=== PATIENT | male | born 1960 | race Caucasian/White ===

== ENCOUNTER 2016-10-03 19:53 | Inpatient (IN) | payer BC ==
[~2016-10-03] VITALS: Ht 177.8 cm; Wt 104.3 kg
[2016-10-03] MEDS ORDERED: FENTANYL PF 100 MCG/2 ML VIAL. IV ONE ×2 (20:30)
[2016-10-03] MEDS ORDERED: IV NORMAL SALINE 1000ML BAG 1,000 ML IV ONE (20:30)
[2016-10-03] MEDS ORDERED: ONDANSETRON PF 4 MG/2 ML VIAL. IV ONE (20:30)
[2016-10-03 20:37] LABS: BASO # 0.1 x10^3/uL (0.0-0.2); BASO % 1 % (0-3); EOS % 2 % (0-3); HEMATOCRIT 47.3 % (39.0-53.0); LYMPH # 3.3 x10^3/uL (1.0-4.8); LYMPH % 37 % (24-48); MEAN CORPUSCULAR HEMOGLOBIN 33 pg (25-35); MEAN CORPUSCULAR HGB CONC 34 g/dL (31-37); MEAN CORPUSCULAR VOLUME 98 fL (79-100); MONO % 7 % (0-9); NEUT % 53 % (31-73); PLATELET COUNT 227 x10^3/uL (140-400); RED BLOOD COUNT 4.81 x10^6/uL (4.30-5.70); RED CELL DISTRIBUTION WIDTH 12.7 % (11.5-14.5); WHITE BLOOD COUNT 8.7 x10^3/uL (4.0-11.0)
[2016-10-03 20:44] LABS: CALCIUM 8.7 mg/dL (8.5-10.1); POTASSIUM 3.6 mmol/L (3.5-5.1)
[2016-10-03 20:51] LABS: ALBUMIN 3.7 g/dL (3.4-5.0); ALBUMIN/GLOBULIN RATIO 0.8 (1.0-1.7); TOTAL BILIRUBIN 0.7 mg/dL (0.2-1.0); TOTAL PROTEIN 8.4 g/dL (6.4-8.2)
[2016-10-03] MEDS ORDERED: HYDROMORPHONE 2 MG/ML VIAL. ONE (21:30)
[2016-10-03] MEDS ORDERED: HYDROMORPHONE 2 MG/ML VIAL. IV/SQ PRN (21:30)
--- NOTE | 2016-10-03 21:39 | RAD ---
PROCEDURE CT abdomen pelvis without contrast. HISTORY Severe abdominal pain and vomiting. TECHNIQUE Helical CT imaging of the abdomen and pelvis is performed without IV or oral contrast. PQRS: One or more the following individualized dose reduction techniques were utilized for the study: 1. Automated exposure control. 2. Adjustment of the mA and/or kV according to patient size. 3. Use of iterative reconstruction technique. COMPARISON None. FINDINGS Evaluation of solid organs and bowel is limited without oral and IV contrast, decreasing sensitivity for detection of pathology. There is a 6 x 9 millimeter noncalcified nodule in the left lower lobe, image 15. Mild bilateral dependent atelectasis or scarring. Cardiac size normal. Cholelithiasis. The liver, spleen, pancreas, adrenal glands, abdominal aorta, and kidneys are normal. Stomach unremarkable. No dilated small bowel is seen. There are a couple of diverticula of the descending colon without inflammation. No colon wall thickening is identified. The appendix is normal. No abdominal adenopathy or free fluid. Urinary bladder is normal prostate size normal. No pelvic free fluid. There is disc space narrowing and vacuum disc phenomenon and probably reactive endplate sclerosis of L5/S1. IMPRESSION 1. No acute abdominal or pelvic abnormality. 2. There is a 6 x 9 millimeter indeterminate pulmonary nodule in the left lower lobe. Recommend outpatient noncontrast CT chest. Electronically signed by: Marcellus Kenney MD (Oct 03, 2016 21:38:37)
--- NOTE | 2016-10-03 22:36 | PHYS DOC ---
Past Medical History Past Medical History: Anxiety, GERD Past Surgical History: Other Additional Past Surgical Histo: knee, cervical, lumbar Alcohol Use: None Drug Use: None Adult General Chief Complaint Chief Complaint: ABDOMINAL PAIN HPI HPI 55-year-old otherwise healthy male presents with severe right upper quadrant/ epigastric pain stemming gone on now for several hours. He states the onset was after eating. He denies any similar symptoms. His makes a point to state that he never goes to the doctor. Eyes fever chills or sweats. He's not had any melena or hematemesis. [] Review of Systems Review of Systems Constitutional: Denies fever or chills [] Eyes: Denies change in visual acuity, redness, or eye pain [] HENT: Denies nasal congestion or sore throat [] Respiratory: Denies cough or shortness of breath [] Cardiovascular: No additional information not addressed in HPI [] GI: Per history of present illness [] : Denies dysuria or hematuria [] Musculoskeletal: Denies back pain or joint pain [] Integument: Denies rash or skin lesions [] Neurologic: Denies headache, focal weakness or sensory changes [] Endocrine: Denies polyuria or polydipsia [] Current Medications Current Medications Current Medications Medications (Trade) Dose Ordered Sig/Dominick Start Time Stop Time Status Last Admin Dose Admin Fentanyl Citrate (Fentanyl 2ml Vial) 50 mcg 1X ONCE 10/03/16 20:30 10/03/16 20:31 DC 10/03/16 20:34 50 MCG Fentanyl Citrate 50 mcg 50 mcg 1X ONCE 10/03/16 20:30 10/03/16 20:31 Cancel Hydromorphone HCl (Dilaudid) 2 mg STK-MED ONCE 10/03/16 21:30 10/03/16 21:31 DC Ondansetron HCl (Zofran) 4 mg 1X ONCE 10/03/16 20:30 10/03/16 20:31 DC 10/03/16 20:34 4 MG Sodium Chloride (Iv Sodium Chloride 0.9% 1000ml Bag) 1,000 ml @ 1,000 mls/hr 1X ONCE 10/03/16 20:30 10/03/16 21:29 DC 10/03/16 20:33 1,000 MLS/HR Allergies Allergies Allergies Coded Allergies Type Severity Reaction Last Updated Verified No Known Drug Allergies 10/03/16 No Physical Exam Physical Exam Constitutional: Well developed, well nourished, moderate to severe distress, non -toxic appearance. [] HENT: Normocephalic, atraumatic, bilateral external ears normal, oropharynx moist, no oral exudates, nose normal. [] Eyes: PERRLA, EOMI, conjunctiva normal, no discharge. [] Neck: Normal range of motion, no tenderness, supple, no stridor. [] Cardiovascular:Heart rate regular rhythm, no murmur [] Lungs & Thorax: Bilateral breath sounds clear to auscultation [] Abdomen: Epigastric tenderness to palp positive Segura's. [] Skin: Warm, dry, no erythema, no rash. [] Back: No tenderness, no CVA tenderness. [] Extremities: No tenderness, no cyanosis, no clubbing, ROM intact, no edema. [] Neurologic: Alert and oriented X 3, normal motor function, normal sensory function, no focal deficits noted. [] Psychologic: Anxious [] Current Patient Data Vital Signs Vital Signs Date Time Temp Pulse Resp B/P Pulse Ox O2 Delivery O2 Flow Rate FiO2 10/03/16 21:45 65 20 165/103 98 Room Air 10/03/16 20:03 97.9 97.9 Lab Values Laboratory Tests Test 10/03/16 20:25 White Blood Count 8.7x10^3/uL (4.0-11.0) Red Blood Count 4.81x10^6/uL (4.30-5.70) Hemoglobin 16.0g/dL (13.0-17.5) Hematocrit 47.3% (39.0-53.0) Mean Corpuscular Volume 98fL (79-100) Mean Corpuscular Hemoglobin 33pg (25-35) Mean Corpuscular Hemoglobin Concent 34g/dL (31-37) Red Cell Distribution Width 12.7% (11.5-14.5) Platelet Count 227x10^3/uL (140-400) Neutrophils (%) (Auto) 53% (31-73) Lymphocytes (%) (Auto) 37% (24-48) Monocytes (%) (Auto) 7% (0-9) Eosinophils (%) (Auto) 2% (0-3) Basophils (%) (Auto) 1% (0-3) Neutrophils # (Auto) 4.6x10^3uL (1.8-7.7) Lymphocytes # (Auto) 3.3x10^3/uL (1.0-4.8) Monocytes # (Auto) 0.6x10^3/uL (0.0-1.1) Eosinophils # (Auto) 0.2x10^3/uL (0.0-0.7) Basophils # (Auto) 0.1x10^3/uL (0.0-0.2) Sodium Level 137mmol/L (136-145) Potassium Level 3.6mmol/L (3.5-5.1) Chloride Level 99mmol/L (98-107) Carbon Dioxide Level 26mmol/L (21-32) Anion Gap 12 (6-14) Blood Urea Nitrogen 11mg/dL (8-26) Creatinine 1.0mg/dL (0.7-1.3) Estimated GFR (Cockcroft-Gault) 77.0 BUN/Creatinine Ratio 11 (6-20) Glucose Level 194mg/dL (70-99) H Calcium Level 8.7mg/dL (8.5-10.1) Total Bilirubin 0.7mg/dL (0.2-1.0) Aspartate Amino Transferase (AST) 133U/L (15-37) H Alanine Aminotransferase (ALT) 197U/L (16-63) H Alkaline Phosphatase 112U/L (46-116) Troponin I Quantitative < 0.017ng/mL (0.000-0.055) Total Protein 8.4g/dL (6.4-8.2) H Albumin 3.7g/dL (3.4-5.0) Albumin/Globulin Ratio 0.8 (1.0-1.7) L Lipase 240U/L (73-393) Laboratory Tests 10/03/16 20:25 Laboratory Tests 10/03/16 20:25 EKG EKG [EKG: Normal sinus rhythm rate of [address]-T change] Radiology/Procedures Radiology/Procedures [] Impressions: CT abdomen pelvis without contrast. HISTORY Severe abdominal pain and vomiting. TECHNIQUE Helical CT imaging of the abdomen and pelvis is performed without IV or oral contrast. PQRS: One or more the following individualized dose reduction techniques were utilized for the study: 1. Automated exposure control. 2. Adjustment of the mA and/or kV according to patient size. 3. Use of iterative reconstruction technique. COMPARISON None. FINDINGS Evaluation of solid organs and bowel is limited without oral and IV contrast, decreasing sensitivity for detection of pathology. There is a 6 x 9 millimeter noncalcified nodule in the left lower lobe, image 15. Mild bilateral dependent atelectasis or scarring. Cardiac size normal. Cholelithiasis. The liver, spleen, pancreas, adrenal glands, abdominal aorta, and kidneys are normal. Stomach unremarkable. No dilated small bowel is seen. There are a couple of diverticula of the descending colon without inflammation. No colon wall thickening is identified. The appendix is normal. No abdominal adenopathy or free fluid. Urinary bladder is normal prostate size normal. No pelvic free fluid. There is disc space narrowing and vacuum disc phenomenon and probably reactive endplate sclerosis of L5/S1. IMPRESSION 1. No acute abdominal or pelvic abnormality. 2. There is a 6 x 9 millimeter indeterminate pulmonary nodule in the left lower lobe. Recommend outpatient noncontrast CT chest. Course & Med Decision Making Course & Med Decision Making Pertinent Labs and Imaging studies reviewed. (See chart for details) [ED course: Evaluation reveals a 55-year-old man in moderate to severe distress secondary to abdominal pain. Patient was given multiple doses of pain medicine and IV fluids which did help diminish his pain. He was also given anti-medics for his vomiting which did seem to work. After multiple doses of pain medication he states the pain is starting to come back and at this point I think the patient is best treated with continued IV hydration and pain medicine as an inpatient. He will also need surgical evaluation for his gallbladder.] Dragon Disclaimer Dragon Disclaimer This electronic medical record was generated, in whole or in part, using a voice recognition dictation system. Departure Departure Impression: Primary Impression: Abdominal pain Additional Impression: Biliary colic Disposition: ADMITTED INPATIENT Admitting Physician: Shell Perdue Condition: IMPROVED Referrals: DMITRIY BRANDT (PCP) Problem Qualifiers Primary Impression: Abdominal pain Abdominal location: right lower quadrant Qualified Code: R10.31 - Right lower quadrant pain MODESTO DENNY DO Oct 03, 2016 22:36
[2016-10-03] MEDS ORDERED: FENTANYL PF 100 MCG/2 ML VIAL. IV PRN (22:45)
[2016-10-03] MEDS ORDERED: ONDANSETRON PF 4 MG/2 ML VIAL. IV PRN (22:45)
[2016-10-03 23:00] VITALS: BP 170/111
--- NOTE | 2016-10-03 23:03 | EKG ---
[facility] [address] [place] [address] Test Date: 2016-10-03 Test Time: 20:42:51 Pat Name: LETHA PARK Department: Room: Gender: M Supervisor Prepress: : [id number] Requested By: MODESTO DENNY Order Number: [id number] Reading MD: Measurements Intervals Shannon Rate: 70 P: 49 SC: 212 QRS: -5 QRSD: 88 T: 39 QT: 394 QTc: 428 Interpretive Statements SINUS RHYTHM LEFTWARD AXIS OTHERWISE NORMAL ECG RI6.01 No previous ECG available for comparison
--- NOTE | 2016-10-03 23:12 | ACF ---
Admission Forms Criteria ABDOMINAL PAIN Clinical Indications for Admission to Inpatient Care (Place 'X' for any and all applicable criteria): Admission is indicated for ANY ONE of the following(1)(2)(3)(4)(5): [X]I. Inpatient admission required rather than observation care (Also use Abdominal Pain: Observation Care, as appropriate) because of ANY ONE of the following: [X]a) Severe pain requiring acute inpatient management [ ]b) Identification of etiology/finding that requires inpatient care (eg, aortic dissection, free air) [ ]c) Absent bowel sounds with complete ileus(6) [ ]d) Suspected toxic megacolon [ ]e) Severe electrolyte abnormalities requiring inpatient care [ ]f) High fever or infection requiring inpatient admission as indicated by ANY ONE of following(7)(8): [ ] i) Appropriate outpatient or observational care antimicrobial treatment unavailable, not effective, or not feasible [ ] ii) Documented bacteremia [ ] iii) Temperature > 104.9 degrees F (oral) [ ] iv) T >103.1 F (oral) or < 96.8 F(rectal) that does not respond to all emergency treatment measures [ ]g) Signs of intestinal obstruction [B] [ ]h) Hemodynamic instability [ ]i) IV fluid to replace significant ongoing losses (greater than 3 L/m2 per day) (12)(13) [ ]j) Percutaneous or open drainage (eg, abscess, biliary tract ) procedures [ ]k) Parenteral nutrition regimen that must be implemented on inpatient basis [ ]l) Other condition,treatment or monitoring requiring inpatient admission. [ ]II. Peritoneal signs present [ ]III. Surgery needed that cannot be performed on an ambulatory basis. [ ]IV. Evaluation requires patient to not eat or drink for extended period ( eg, more than 24 hours). [ ]V. Contraindications and/or Inappropriate clinical situations for Observational Care in patients with abdominal pain, when ANY ONE of the following is required: [ ]a) Thorough evaluation is required to prevent catastrophic events due to delays in diagnosing (e.g.Mesenteric ischemia) 1,3 [ ]b) Patient with severe pathology or with chronic symptoms unlikely to improve in the ED stay (3) [ ]. General contraindications and/or Inappropriate clinical situations for Observational Care in patients with abdominal pain, when ANY ONE of the following is required: [ ]a) Prediction of prolongation of LOS based on ANY ONE of the following may be considered as a contraindication for observational care 2, 3, 4, 5, 6, 7, 8, 9, 10, 11 [ ]i) Age > 65 yrs. [ ]ii) Patient arriving by ambulance [ ]iii) Patient with high acuity [ ]iv) Patient requiring vital sign monitoring [ ]v) Patient on IV medication [ ]b) Systolic blood pressures 180mmHg 3,12 [ ]c) Patient with altered mental status including delirium and other alteration of consciousness, (3) [ ]d) Patient whose discharge disposition will be to a senior care home or rehabilitation home should not be managed in Emergency Department Observation Unit. CMS rule requires 3 days hospital stay before such placement.3,13 [ ]e) Patient with failure to thrive due to broad array of etiologies 3,16,17 [ ]f) Inability to ambulate 3,14 Extended stay beyond goal length of stay may be needed for(2)(3): [ ]a) Persistent abdominal pain with suspected intra-abdominal process [ ]b) Diagnosed condition requiring continued stay (e.g., pancreatitis, complicated diverticulitis) [ ]c) Surgery (e.g., colectomy) The original [employer] [facility] content created by [employer] has been revised. The portions of the content which have been revised are identified through the use of italic text or in bold, and [facility] has neither reviewed nor approved the modified material.All other unmodified content is copyright [employer]. Please see references footnoted in the original [employer] edition 2016 Admission Criteria Met?: Yes JAMEE BOBBY Oct 03, 2016 23:12
--- NOTE | 2016-10-03 23:39 | RAD ---
PROCEDURE Limited abdominal ultrasound. HISTORY Severe abdominal pain and vomiting. Gallstone seen on CT. TECHNIQUE Real-time ultrasound imaging of the right upper quadrant of the abdomen is performed. COMPARISON CT abdomen pelvis without contrast, earlier same day. FINDINGS Pancreas is not well seen due to overlying bowel gas. IVC is unremarkable. Right hepatic lobe measures 21.4 cm. Liver echotexture is mildly increased. Common etiology is fatty infiltration. There is cholelithiasis. Gallbladder is distended. Gallbladder wall is mildly thickened measuring 4 millimeters. Sonographic Segura sign is negative. No pericholecystic fluid is seen. The right kidney length is 12.3 cm. Normal appearance, no hydronephrosis. Common bile duct is normal in caliber measuring 5 millimeters. IMPRESSION 1. Cholelithiasis. Gallbladder wall is mildly thickened. Sonographic Segura sign is negative. 2. Hepatomegaly. Fatty infiltration of the liver. Electronically signed by: Marcellus Kenney MD (Oct 03, 2016 23:38:30)
[2016-10-03] MEDS: IV NORMAL SALINE 1000ML BAG 1,000 ML IV SCH (23:59)
[2016-10-04] VITALS (7 sets, daily range): BP systolic 111–132; BP diastolic 70–93
[2016-10-04] MEDS ORDERED: Paxil PO (00:40)
[2016-10-04] MEDS ORDERED: heartburn med PO (00:40)
[2016-10-04] MEDS: IV NORMAL SALINE 1000ML BAG 1,000 ML IV SCH ×5 (05:57→22:50)
[2016-10-04] MEDS ORDERED: Citalopram PO (06:02)
[2016-10-04] MEDS ORDERED: OMEP20CA9 PO (06:02)
--- NOTE | 2016-10-04 09:20 | PDOC1 ---
History and Physical Family History Family History: Other (he doen't know) Social History Smoke: No ALCOHOL: social Current Problem List Problem List Problems Medical Problems: (1) Abdominal pain Status: Acute (2) Biliary colic Status: Acute Current Medications Current Medications Current Medications Medications (Trade) Dose Ordered Sig/Dominick Start Time Stop Time Status Last Admin Dose Admin Fentanyl Citrate (Fentanyl 2ml Vial) 50 mcg 1X ONCE 10/03/16 20:30 10/03/16 20:31 DC 10/03/16 20:34 50 MCG Fentanyl Citrate 50 mcg 50 mcg PRN Q1HR PRN 10/03/16 22:45 10/04/16 22:44 10/04/16 00:01 50 MCG Hydromorphone HCl (Dilaudid) 2 mg STK-MED ONCE 10/03/16 21:30 10/03/16 21:31 DC Ondansetron HCl (Zofran) 4 mg PRN Q8HRS PRN 10/03/16 22:45 10/04/16 22:44 Sodium Chloride (Iv Sodium Chloride 0.9% 1000ml Bag) 1,000 ml @ 150 mls/hr Q6H40M 10/03/16 22:45 10/04/16 22:44 10/04/16 05:57 150 MLS/HR Allergies Allergies Allergies Coded Allergies Type Severity Reaction Last Updated Verified codeine Allergy Mild Itching 10/04/16 Yes ROS Review of System CONSTITUTIONAL: No fever or chills EYES: No recent changes SKIN: No rash or itching CARDIOVASCULAR: No chest pain, syncope, palpitations, or edema RESPIRATORY: No SOB or cough GASTROINTESTINAL: nausea, vomiting or abdominal pain NEUROLOGICAL: No headaches or weakness ENDOCRINE: No cold or heat intolerance GENITOURINARY: No urgency or frequency of urination MUSCULOSKELETAL: No back pain or joint pain LYMPHATICS: No enlarged lymph nodes PSYCHIATRIC: No anxiety or depression Physical Exam Physical Exam GEN.: No apparent distress. Alert and oriented. HEENT: Head is normocephalic, atraumatic NECK: Supple. LUNGS: Clear to auscultation. HEART: RRR, S1, S2 present. Peripheral pulses intact ABDOMEN: Soft, nontender. Positive bowel sounds. EXTREMITIES: Without any cyanosis. NEUROLOGIC: Normal speech, normal tone PSYCHIATRIC: Normal affect, normal mood. SKIN: No ulcerations Vitals Vitals Vital Signs Date Time Temp Pulse Resp B/P Pulse Ox O2 Delivery O2 Flow Rate FiO2 10/04/16 07:00 98.4 74 18 132/85 93 Room Air 98.4 Labs Labs Laboratory Tests Test 10/03/16 20:25 10/04/16 04:50 White Blood Count 8.7x10^3/uL (4.0-11.0) Red Blood Count 4.81x10^6/uL (4.30-5.70) Hemoglobin 16.0g/dL (13.0-17.5) Hematocrit 47.3% (39.0-53.0) Mean Corpuscular Volume 98fL (79-100) Mean Corpuscular Hemoglobin 33pg (25-35) Mean Corpuscular Hemoglobin Concent 34g/dL (31-37) Red Cell Distribution Width 12.7% (11.5-14.5) Platelet Count 227x10^3/uL (140-400) Neutrophils (%) (Auto) 53% (31-73) Lymphocytes (%) (Auto) 37% (24-48) Monocytes (%) (Auto) 7% (0-9) Eosinophils (%) (Auto) 2% (0-3) Basophils (%) (Auto) 1% (0-3) Neutrophils # (Auto) 4.6x10^3uL (1.8-7.7) Lymphocytes # (Auto) 3.3x10^3/uL (1.0-4.8) Monocytes # (Auto) 0.6x10^3/uL (0.0-1.1) Eosinophils # (Auto) 0.2x10^3/uL (0.0-0.7) Basophils # (Auto) 0.1x10^3/uL (0.0-0.2) Sodium Level 137mmol/L (136-145) Potassium Level 3.6mmol/L (3.5-5.1) Chloride Level 99mmol/L (98-107) Carbon Dioxide Level 26mmol/L (21-32) Anion Gap 12 (6-14) Blood Urea Nitrogen 11mg/dL (8-26) Creatinine 1.0mg/dL (0.7-1.3) Estimated GFR (Cockcroft-Gault) 77.0 BUN/Creatinine Ratio 11 (6-20) Glucose Level 194mg/dL (70-99) Calcium Level 8.7mg/dL (8.5-10.1) Total Bilirubin 0.7mg/dL (0.2-1.0) Aspartate Amino Transf (AST/SGOT) 133U/L (15-37) Alanine Aminotransferase (ALT/SGPT) 197U/L (16-63) Alkaline Phosphatase 112U/L (46-116) Troponin I Quantitative < 0.017ng/mL (0.000-0.055) < 0.017ng/mL (0.000-0.055) Total Protein 8.4g/dL (6.4-8.2) Albumin 3.7g/dL (3.4-5.0) Albumin/Globulin Ratio 0.8 (1.0-1.7) Lipase 240U/L (73-393) Laboratory Tests Test 10/03/16 20:25 10/04/16 04:50 White Blood Count 8.7x10^3/uL (4.0-11.0) Red Blood Count 4.81x10^6/uL (4.30-5.70) Hemoglobin 16.0g/dL (13.0-17.5) Hematocrit 47.3% (39.0-53.0) Mean Corpuscular Volume 98fL (79-100) Mean Corpuscular Hemoglobin 33pg (25-35) Mean Corpuscular Hemoglobin Concent 34g/dL (31-37) Red Cell Distribution Width 12.7% (11.5-14.5) Platelet Count 227x10^3/uL (140-400) Neutrophils (%) (Auto) 53% (31-73) Lymphocytes (%) (Auto) 37% (24-48) Monocytes (%) (Auto) 7% (0-9) Eosinophils (%) (Auto) 2% (0-3) Basophils (%) (Auto) 1% (0-3) Neutrophils # (Auto) 4.6x10^3uL (1.8-7.7) Lymphocytes # (Auto) 3.3x10^3/uL (1.0-4.8) Monocytes # (Auto) 0.6x10^3/uL (0.0-1.1) Eosinophils # (Auto) 0.2x10^3/uL (0.0-0.7) Basophils # (Auto) 0.1x10^3/uL (0.0-0.2) Sodium Level 137mmol/L (136-145) Potassium Level 3.6mmol/L (3.5-5.1) Chloride Level 99mmol/L (98-107) Carbon Dioxide Level 26mmol/L (21-32) Anion Gap 12 (6-14) Blood Urea Nitrogen 11mg/dL (8-26) Creatinine 1.0mg/dL (0.7-1.3) Estimated GFR (Cockcroft-Gault) 77.0 BUN/Creatinine Ratio 11 (6-20) Glucose Level 194mg/dL (70-99) Calcium Level 8.7mg/dL (8.5-10.1) Total Bilirubin 0.7mg/dL (0.2-1.0) Aspartate Amino Transf (AST/SGOT) 133U/L (15-37) Alanine Aminotransferase (ALT/SGPT) 197U/L (16-63) Alkaline Phosphatase 112U/L (46-116) Troponin I Quantitative < 0.017ng/mL (0.000-0.055) < 0.017ng/mL (0.000-0.055) Total Protein 8.4g/dL (6.4-8.2) Albumin 3.7g/dL (3.4-5.0) Albumin/Globulin Ratio 0.8 (1.0-1.7) Lipase 240U/L (73-393) VTE Prophylaxis Ordered VTE Prophylaxis Devices: Yes VTE Pharmacological Prophylaxi: No ARNOLDO READ MD Oct 04, 2016 09:20
[2016-10-04] MEDS ORDERED: ONDANSETRON PF 4 MG/2 ML VIAL. IV PRN ×2 (09:30→14:45)
[2016-10-04] MEDS ORDERED: ACETAMINOPHEN 325 MG TABLET. PO PRN ×2 (09:30)
[2016-10-04] MEDS ORDERED: ALBUTEROL SULFATE 2.5 MG/3 ML NEBU. NEB PRN (09:30)
[2016-10-04] MEDS ORDERED: hydrALAZINE 20 MG/ML VIAL. IVP PRN (09:30)
[2016-10-04] MEDS: PIPERACILLIN/TAZOBACTAM 3.375 GM in IV NORMAL SALINE 50ML 50 ML IV SCH ×2 (12:54→18:12)
--- NOTE | 2016-10-04 13:13 | HP ---
ADMIT DATE: 10/03/2016 CHIEF COMPLAINT: Abdominal pain. HISTORY OF PRESENT ILLNESS: A 55-year-old male patient with prior history of GERD and anxiety, presented to the ER with complaints of severe right and epigastric abdominal pain for nearly 1 day history. Symptoms started a few hours prior to his arrival and it was exacerbated by eating. The patient denies any prior history of any abdominal surgeries. He denies any hematemesis, hematochezia, fever or chills. He had nausea and vomiting associated with it. At the time of his arrival to the ER, his pain controlled with morphine. Initial investigations showed cholelithiasis symptomatic. PAST MEDICAL HISTORY: Anxiety, GERD. PAST SURGICAL HISTORY: cervical and lumbar surgery. PERSONAL HISTORY: No smoking. Alcohol occasional. No drug abuse. FAMILY HISTORY: The patient does not know. REVIEW OF SYSTEMS: Please see my electronic H and P. PHYSICAL EXAMINATION: Please see my electronic H and P. LABORATORY DATA: CBC within normal limits. Chemistry within normal limits with mild elevation of AST 133, ALT 197. Troponin is negative 2 sets. EKG, could not able to verify the report. As per the ER physician's note, normal sinus rhythm, no ST-T wave changes. IMAGING STUDIES: Ultrasound of the abdomen showed cholelithiasis, gallbladder wall thickening with sonographic Segura sign negative and hepatomegaly. Abdomen and pelvis CT showed no acute abdominal pelvic abnormality and a 6 x 9 mm indeterminate pulmonary nodule in the left lower lobe. Recommended outpatient CT. ASSESSMENT AND PLAN: 1. Symptomatic cholelithiasis, present on admission. 2. 6 x 9 mm pulmonary nodule in the left lower lobe, needs outpatient followup. 3. Obesity, BMI 33. 4. Gastroesophageal reflux disease. PLAN: 1. The patient is scheduled for a cholecystectomy today and General Surgery has been consulted. 2. I will control his pain with IV fentanyl p.r.n. as needed, IV hydration and n.p.o. status now. 3. Monitor electrolytes and replace as needed. 4. DVT prophylaxis. 5. Plan explained to patient and his . Agree with the above plan. ARNOLDO READ MD DR: CRISTINA/jovani JOB#: [id number] / [id number] MTDD
[2016-10-04] MEDS ORDERED: IOHEXOL 300 MG/ML 50 ML VIAL. ONE (13:45)
[2016-10-04] MEDS ORDERED: BUPIVAC MPF-EPI 0.5%-1:200000 30 ML VIAL. ONE (13:45)
[2016-10-04] MEDS ORDERED: SURGICEL HEMOSTAT 4X8 EACH. ONE (13:45)
[2016-10-04] MEDS ORDERED: LIDOCAINE 2% 100 MG/5 ML SYRINGE. ONE (13:58)
[2016-10-04] MEDS ORDERED: PROPOFOL 20 ML IV ONE (13:58)
[2016-10-04] MEDS ORDERED: SUCCINYLCHOLINE 200 MG/10 ML VIAL. ONE (13:59)
[2016-10-04] MEDS ORDERED: ROCURONIUM 50 MG/5 ML VIAL. ONE (13:59)
[2016-10-04] MEDS ORDERED: FENTANYL PF 100 MCG/2 ML VIAL. ONE ×3 (13:59→17:40)
[2016-10-04] MEDS ORDERED: IV RINGERS,LACTATED 1000ML 1,000 ML IV SCH (14:43)
[2016-10-04] MEDS ORDERED: LIDOCAINE 1% 1 ML SYRINGE. ID PRN (14:45)
[2016-10-04] MEDS ORDERED: MORPHINE SULFATE 2 MG/ML DISP.SYRIN. IV PRN ×2 (14:45→22:30)
[2016-10-04] MEDS ORDERED: PROCHLORPERAZINE 10 MG/2 ML VIAL. IV PRN (14:45)
[2016-10-04] MEDS ORDERED: HYDROMORPHONE 2 MG/ML VIAL. IV PRN (14:45)
[2016-10-04] MEDS ORDERED: FENTANYL PF 100 MCG/2 ML VIAL. IV PRN (14:45)
[2016-10-04] MEDS ORDERED: MIDAZOLAM HCL/PF 2 MG/2 ML VIAL. ONE (15:54)
[2016-10-04] MEDS ORDERED: GLYCOPYRROLATE 1 MG/5 ML VIAL. ONE (15:59)
[2016-10-04] MEDS ORDERED: DEXAMETHASONE SOD PHOS 20 MG/5 ML VIAL. ONE (16:00)
[2016-10-04] MEDS ORDERED: NEOSTIGMINE METHYLSULFATE 5 MG/5 ML SYRINGE. ONE (16:00)
[2016-10-04] MEDS ORDERED: KETOROLAC 60 MG/2 ML INJ FOR OR. ONE (16:00)
[2016-10-04] MEDS ORDERED: ONDANSETRON PF 4 MG/2 ML VIAL. ONE (16:00)
[2016-10-04] MEDS ORDERED: EPHEDRINE PF IN SALINE 50 MG/5 ML DISP.SYRIN. IV ONE (16:19)
[2016-10-04] MEDS ORDERED: PHENYLEPHRINE in 0.9% NACL PF 1 MG/10 ML DISP.SYRIN. IV ONE (16:23)
[2016-10-04] MEDS ORDERED: hydrALAZINE 20 MG/ML VIAL. ONE (16:52)
--- NOTE | 2016-10-04 17:20 | RAD ---
Intraoperative cholangiogram 10/04/2016 Clinical history: Laparoscopic cholecystectomy. An intraoperative lateral exam was performed. The fluoroscopic time is listed as 0.17 minutes. Three digital spot radiographs of the right upper quadrant of the abdomen were obtained. These images demonstrate contrast opacifying the cystic duct remnant, the left and right hepatic ducts and their branches, the common hepatic duct and the common bile duct. Free spillage of contrast into the duodenum is noted. The ducts are normal in caliber. No filling defect is seen. Impression: Negative study.
--- NOTE | 2016-10-04 17:57 | PDOC2 ---
CONSULT Date of Consult Date of Consult DATE: 10/04/16 TIME: 17:54 History of Present Illness Reason for Visit: The patient is a 55 year old male who reported to the ER because of a 1 day history of abdominal pain. The pain was located in the upper mid abdomen and RUQ, and is described as severe. He developed associated nausea and vomiting, and states the pain occurred after eating. His evaluation is suggestive of cholecystitis. Past Medical History Past Medical History denies Past Surgical History Past Surgical History back Family History Family History: Other (he doen't know) Social History No ALCOHOL: social Current Problem List Problem List Problems Medical Problems: (1) Abdominal pain Status: Acute (2) Biliary colic Status: Acute Current Medications Current Medications Current Medications Fentanyl Citrate 50 mcg 50 mcg 1X ONCE IV ; Start 10/03/16 at 20:30; Stop 10/03 at 20:31; Status Cancel Sodium Chloride (Iv Sodium Chloride 0.9% 1000ml Bag) 1,000 ml @ 1,000 mls/hr 1X ONCE IV Last administered on 10/03/16 20:33; Start 10/03/16 at 20:30; Stop 10/03/16 at 21:29; Status DC Ondansetron HCl (Zofran) 4 mg 1X ONCE IV Last administered on 10/03/16 20:34 ; Start 10/03/16 at 20:30; Stop 10/03/16 at 20:31; Status DC Fentanyl Citrate (Fentanyl 2ml Vial) 50 mcg 1X ONCE IV Last administered on 20:34; Start 10/03/16 at 20:30; Stop 10/03/16 at 20:31; Status DC Hydromorphone HCl (Dilaudid) 1 mg PRN Q15MIN PRN IV/SQ PAIN GREATER THAN 3/10 Last administered on 10/03/16 21:33; Start 10/03/16 at 21:30; Stop 10/04/16 at 21:29 Hydromorphone HCl (Dilaudid) 2 mg STK-MED ONCE .ROUTE ; Start 10/03/16 at 21:30 ; Stop 10/03/16 at 21:31; Status DC Ondansetron HCl (Zofran) 4 mg PRN Q8HRS PRN IV NAUSEA/VOMITING; Start 10/03/16 at 22:45; Stop 10/04/16 at 22:44 Fentanyl Citrate 50 mcg 50 mcg PRN Q1HR PRN IV PAIN Last administered on 00:01; Start 10/03/16 at 22:45; Stop 10/04/16 at 22:44 Sodium Chloride (Iv Sodium Chloride 0.9% 1000ml Bag) 1,000 ml @ 150 mls/hr Q6H40M IV Last administered on 10/04/16 05:57; Start 10/03/16 at 22:45; Stop 10/04/16 at 22:44 Acetaminophen (Tylenol) 325 mg PRN Q6HRS PRN PO MILD PAIN / TEMP; Start at 09:30; Stop 10/04/16 at 09:30; Status DC Hydralazine HCl (Apresoline) 10 mg PRN Q4HRS PRN IVP ELEVATED BP, SEE COMMENTS ; Start 10/04/16 at 09:30 Ondansetron HCl (Zofran) 4 mg PRN Q8HRS PRN IV NAUSEA/VOMITING; Start 10/04/16 at 09:30 Albuterol Sulfate 2.5 mg 2.5 mg PRN Q4HRS PRN NEB SHORTNESS OF BREATH; Start at 09:30 Sodium Chloride (Iv Sodium Chloride 0.9% 1000ml Bag) 1,000 ml @ 75 mls/hr [id number] IV Last administered on 10/04/16 12:54; Start 10/04/16 at 09:30 Acetaminophen 325 mg 325 mg PRN Q6HRS PRN PO MILD PAIN / TEMP; Start 10/04/16 at 09:30 Piperacillin Sod/ Tazobactam Sod/ Sodium Chloride (Zosyn/Iv Sodium Chloride 0.9 % 50ml) 50 ml @ 100 mls/hr Q6HRS IV Last administered on 10/04/16 12:54; Start 10/04/16 at 12:00 Cellulose 1 each STK-MED ONCE .ROUTE Last administered on 10/04/16 17:26; Start 10/04/16 at 13:45; Stop 10/04/16 at 13:46; Status DC Bupivacaine HCl/ Epinephrine Bitart (Sensorcain-Mpf Epi 0.5%-1:441003) 30 ml STK -MED ONCE .ROUTE Last administered on 10/04/16t 16:32; Start 10/04/16 at 13:45 ; Stop 10/04/16 at 13:46; Status DC Iohexol 50 ml 50 ml STK-MED ONCE .ROUTE Last administered on 10/04/16t 16:32; Start 10/04/16 at 13:45; Stop 10/04/16 at 13:46; Status DC Propofol (Diprivan) 20 ml @ As Directed STK-MED ONCE IV ; Start 10/04/16 at 13: 58; Stop 10/04/16 at 13:59; Status DC Lidocaine HCl (Lidocaine HCl 2% Abboject) 100 mg STK-MED ONCE .ROUTE ; Start 05/12 at 13:58; Stop 10/04/16 at 13:59; Status DC Fentanyl Citrate (Fentanyl 2ml Vial) 100 mcg STK-MED ONCE .ROUTE ; Start at 13:59; Stop 10/04/16 at 14:00; Status DC Succinylcholine Chloride (Anectine) 200 mg STK-MED ONCE .ROUTE ; Start 10/04/16 at 13:59; Stop 10/04/16 at 14:00; Status DC Rocuronium Mona (Zemuron) 50 mg STK-MED ONCE .ROUTE ; Start 10/04/16 at 13:59 ; Stop 10/04/16 at 14:00; Status DC Ondansetron HCl (Zofran) 4 mg PRN Q6HRS PRN IV NAUSEA/VOMITING; Start 10/04/16 at 14:45; Stop 10/05/16 at 14:44 Fentanyl Citrate (Fentanyl 2ml Vial) 25 mcg PRN Q5MIN PRN IV MILD PAIN; Start 10/04/16 at 14:45; Stop 10/05/16 at 14:44 Fentanyl Citrate (Fentanyl 2ml Vial) 50 mcg PRN Q5MIN PRN IV MODERATE PAIN; Start 10/04/16 at 14:45; Stop 10/05/16 at 14:44 Morphine Sulfate 1 mg 1 mg PRN Q10MIN PRN IV SEVERE PAIN; Start 10/04/16 at 14: 45; Stop 10/05/16 at 14:44 Lactated Ringer's (Iv Lactated Ringers) 1,000 ml @ 30 mls/hr Q24H IV ; Start at 14:43; Stop 10/05/16 at 02:42 Lidocaine HCl 2 ml PRN 1X PRN ID PRIOR TO IV START; Start 10/04/16 at 14:45; Stop 10/05/16 at 14:44 Hydromorphone HCl (Dilaudid) 0.5 mg PRN Q10MIN PRN IV SEV PAIN, Second choice; Start 10/04/16 at 14:45; Stop 10/05/16 at 14:44 Prochlorperazine Edisylate (Compazine) 5 mg PACU PRN PRN IV NAUSEA, MRX1; Start 10/04/16 at 14:45; Stop 10/05/16 at 14:44 Midazolam HCl (Versed) 2 mg STK-MED ONCE .ROUTE ; Start 10/04/16 at 15:54; Stop 10/04/16 at 15:55; Status DC Glycopyrrolate (Robinul) 1 mg STK-MED ONCE .ROUTE ; Start 10/04/16 at 15:59; Stop 10/04/16 at 16:00; Status DC Neostigmine Methylsulfate 5 mg STK-MED ONCE .ROUTE ; Start 10/04/16 at 16:00; Stop 10/04/16 at 16:01; Status DC Dexamethasone Sodium Phosphate (Decadron) 20 mg STK-MED ONCE .ROUTE ; Start 05/12 at 16:00; Stop 10/04/16 at 16:01; Status DC Ketorolac Tromethamine (Toradol For Or Only) 60 mg STK-MED ONCE .ROUTE ; Start 10/04/16 at 16:00; Stop 10/04/16 at 16:01; Status DC Ondansetron HCl (Zofran) 4 mg STK-MED ONCE .ROUTE ; Start 10/04/16 at 16:00; Stop 10/04/16 at 16:01; Status DC Ephedrine Sulfate 50 mg STK-MED ONCE IV ; Start 10/04/16 at 16:19; Stop at 16:20; Status DC Phenylephrine HCl 1 mg STK-MED ONCE IV ; Start 10/04/16 at 16:23; Stop 10/04/16 at 16:24; Status DC Fentanyl Citrate (Fentanyl 2ml Vial) 100 mcg STK-MED ONCE .ROUTE ; Start at 16:38; Stop 10/04/16 at 16:39; Status DC Hydralazine HCl (Apresoline) 20 mg STK-MED ONCE .ROUTE ; Start 10/04/16 at 16:52 ; Stop 10/04/16 at 16:53; Status DC Fentanyl Citrate (Fentanyl 2ml Vial) 100 mcg STK-MED ONCE .ROUTE ; Start at 17:40; Stop 10/04/16 at 17:41; Status DC Active Scripts Active Reported [Citalopram] 20 Mg PO DAILY Omeprazole 20 Mg Capsule.dr 1 Cap PO DAILY Allergies Allergies: Coded Allergies: codeine (Verified Allergy, Intermediate, Itching, 10/04/16) ROS General: No: Appetite, Chills, Fatigue, Malaise, Night Sweats, Other PSYCHOLOGICAL ROS: No: Anxiety, Behavioral Disorder, Concentration difficultie , Decreased libido, Depression, Disorientation, Hallucinations, Hostility, Irritablity, Memory difficulties, Mood Swings, Obsessive thoughts, Other, Physical abuse, Sexual abuse, Sleep disturbances, Suicidal ideation Eyes: No Blurry vision, No Decreased vision, No Double vision, No Dry eyes, No Excessive tearing, No Eye Pain, No Itchy Eyes, No Loss of vision, No Other, No Photophobia, No Scotomata, No Uses contacts, No Uses glasses HEENT: No: Epistaxis, Heacaches, Hearing change, Nasal congestion, Nasal discharge, Oral lesions, Other, Sinus pain, Sneezing, Snoring, Sore Throat, Tinnitus, Vertigo, Visual Changes, Vocal changes ALLERGY AND IMMUNOLOGY: No: Hives, Insect Bite Sensitivity, Itchy/Watery Eyes, Nasal Congestion, Other, Post Nasal Drip, Seasonal Allergies Hematological and Lymphatic: No: Bleeding Problems, Blood Clots, Blood Transfusions, Brusing, Night Sweats, Other, Pallor, Swollen Lymph Nodes ENDOCRINE: No: Breast Changes, Galactorrhea, Hair Pattern Changes, Hot Flashes , Malaise/lethargy, Mood Swings, Other, Palpitations, Polydipsia/polyuria, Skin Changes, Temperature Intolerance, Unexpected Weight Changes Respiratory: No: Cough, Hemoptysis, Orthopnea, Other, Pleuritic Pain, SOB with excertion, Shortness of breath, Sputum Changes, Stridor, Tachypnea, Wheezing Cardiovascular: No Chest Pain, No Edema, No Lt Headedness, No Orthopnea, No Other, No Palpitations, No Paroxysmal Noc. Dyspnea Gastrointestinal: Yes Abdominal Pain, Yes Vomiting Genitourinary: No , No , No , No , No , No , No , No Discharge, No Dysuria, No Flank Pain, No Frequency, No Hematuria, No Incontinence, No Other, No Pain, No Retention, No Urgency Musculoskeletal: No Gait Disturbance, No Joint Pain, No Joint Stiffness, No Joint Swelling, No Muscle Pain, No Muscular Weakness, No Other, No Pain In:, No Swelling In: Neurological: No Behavorial Changes, No Bowel/Bladder ControlChng, No Confusion , No Dizziness, No Gait Disturbance, No Headaches, No Impaired Coord/balance, No Memory Loss, No Numbness/Tingling, No Other, No Seizures, No Speech Problems , No Tremors, No Visual Changes, No Weakness Skin: No Acne, No Dry Skin, No Eczema, No Hair Changes, No Lumps, No Mole Changes, No Mottling, No Nail Changes, No Other, No Pruritus, No Rash, No Skin Lesion Changes Physical Exam General: Alert, Oriented X3, Cooperative HEENT: Atraumatic Lungs: Clear to auscultation Heart: Regular rate Abdomen: Soft (tender with palpation in RUQ) Extremities: No clubbing, No cyanosis Skin: No rashes Neuro: Normal speech Vitals VITALS Vital Signs Date Time Temp Pulse Resp B/P Pulse Ox O2 Delivery O2 Flow Rate FiO2 10/04/16 15:31 98.2 75 18 148/98 96 Room Air 98.2 Labs Labs Laboratory Tests Test 10/03/16 20:25 10/04/16 04:50 10/04/16 10:40 White Blood Count 8.7x10^3/uL (4.0-11.0) Red Blood Count 4.81x10^6/uL (4.30-5.70) Hemoglobin 16.0g/dL (13.0-17.5) Hematocrit 47.3% (39.0-53.0) Mean Corpuscular Volume 98fL (79-100) Mean Corpuscular Hemoglobin 33pg (25-35) Mean Corpuscular Hemoglobin Concent 34g/dL (31-37) Red Cell Distribution Width 12.7% (11.5-14.5) Platelet Count 227x10^3/uL (140-400) Neutrophils (%) (Auto) 53% (31-73) Lymphocytes (%) (Auto) 37% (24-48) Monocytes (%) (Auto) 7% (0-9) Eosinophils (%) (Auto) 2% (0-3) Basophils (%) (Auto) 1% (0-3) Neutrophils # (Auto) 4.6x10^3uL (1.8-7.7) Lymphocytes # (Auto) 3.3x10^3/uL (1.0-4.8) Monocytes # (Auto) 0.6x10^3/uL (0.0-1.1) Eosinophils # (Auto) 0.2x10^3/uL (0.0-0.7) Basophils # (Auto) 0.1x10^3/uL (0.0-0.2) Sodium Level 137mmol/L (136-145) Potassium Level 3.6mmol/L (3.5-5.1) Chloride Level 99mmol/L (98-107) Carbon Dioxide Level 26mmol/L (21-32) Anion Gap 12 (6-14) Blood Urea Nitrogen 11mg/dL (8-26) Creatinine 1.0mg/dL (0.7-1.3) Estimated GFR (Cockcroft-Gault) 77.0 BUN/Creatinine Ratio 11 (6-20) Glucose Level 194mg/dL (70-99) Calcium Level 8.7mg/dL (8.5-10.1) Total Bilirubin 0.7mg/dL (0.2-1.0) Aspartate Amino Transf (AST/SGOT) 133U/L (15-37) Alanine Aminotransferase (ALT/SGPT) 197U/L (16-63) Alkaline Phosphatase 112U/L (46-116) Troponin I Quantitative < 0.017ng/mL (0.000-0.055) < 0.017ng/mL (0.000-0.055) < 0.017ng/mL (0.000-0.055) Total Protein 8.4g/dL (6.4-8.2) Albumin 3.7g/dL (3.4-5.0) Albumin/Globulin Ratio 0.8 (1.0-1.7) Lipase 240U/L (73-393) Laboratory Tests Test 10/03/16 20:25 10/04/16 04:50 10/04/16 10:40 White Blood Count 8.7x10^3/uL (4.0-11.0) Red Blood Count 4.81x10^6/uL (4.30-5.70) Hemoglobin 16.0g/dL (13.0-17.5) Hematocrit 47.3% (39.0-53.0) Mean Corpuscular Volume 98fL (79-100) Mean Corpuscular Hemoglobin 33pg (25-35) Mean Corpuscular Hemoglobin Concent 34g/dL (31-37) Red Cell Distribution Width 12.7% (11.5-14.5) Platelet Count 227x10^3/uL (140-400) Neutrophils (%) (Auto) 53% (31-73) Lymphocytes (%) (Auto) 37% (24-48) Monocytes (%) (Auto) 7% (0-9) Eosinophils (%) (Auto) 2% (0-3) Basophils (%) (Auto) 1% (0-3) Neutrophils # (Auto) 4.6x10^3uL (1.8-7.7) Lymphocytes # (Auto) 3.3x10^3/uL (1.0-4.8) Monocytes # (Auto) 0.6x10^3/uL (0.0-1.1) Eosinophils # (Auto) 0.2x10^3/uL (0.0-0.7) Basophils # (Auto) 0.1x10^3/uL (0.0-0.2) Sodium Level 137mmol/L (136-145) Potassium Level 3.6mmol/L (3.5-5.1) Chloride Level 99mmol/L (98-107) Carbon Dioxide Level 26mmol/L (21-32) Anion Gap 12 (6-14) Blood Urea Nitrogen 11mg/dL (8-26) Creatinine 1.0mg/dL (0.7-1.3) Estimated GFR (Cockcroft-Gault) 77.0 BUN/Creatinine Ratio 11 (6-20) Glucose Level 194mg/dL (70-99) Calcium Level 8.7mg/dL (8.5-10.1) Total Bilirubin 0.7mg/dL (0.2-1.0) Aspartate Amino Transf (AST/SGOT) 133U/L (15-37) Alanine Aminotransferase (ALT/SGPT) 197U/L (16-63) Alkaline Phosphatase 112U/L (46-116) Troponin I Quantitative < 0.017ng/mL (0.000-0.055) < 0.017ng/mL (0.000-0.055) < 0.017ng/mL (0.000-0.055) Total Protein 8.4g/dL (6.4-8.2) Albumin 3.7g/dL (3.4-5.0) Albumin/Globulin Ratio 0.8 (1.0-1.7) Lipase 240U/L (73-393) Assessment/Plan Assessment/Plan 55 year old male with RUQ pain, gallstones, suspect acute cholecystitis. Recommend lap talia. The details and risks of surgery were discussed. The patient understands and would like to proceed. ALEXIS PITTS MD Oct 04, 2016 17:57
--- NOTE | 2016-10-04 18:01 | PDOC4 ---
Operative Note Operative Note Operative Note: Preoperative Diagnosis: Acute cholecystitis Postoperative Diagnosis: Same Procedure: Laparoscopic cholecystectomy with intraoperative cholangiogram Surgeons: Santos Anesthesia: GenLala Estimated Blood Loss: 50 mL Specimen: Gallbladder to pathology Drains: None Complications: None Indications: The patient is a 55-year-old male who reported to the emergency department with severe upper abdominal and right upper quadrant pain. His evaluation is consistent with acute calculus cholecystitis. Surgical treatment was offered by means of a laparoscopic cholecystectomy. The risks of surgery were discussed which include bleeding, infection, bile duct injury, bile leak, pain, the potential for additional surgeries or procedures. The patient understands and would like to proceed. Description: The patient was taken to the operating room and laid supine on the operating table. General anesthesia was performed. The abdomen was prepped with ChloraPrep and draped in a standard surgical fashion. A small infraumbilical incision was made with a scalpel. The Veress needle was then inserted and a pneumoperitoneum was then created. A 5 mm trocar was then inserted and the laparoscope was introduced. In the upper midabdomen an 11 mm trocar was inserted and in the right upper quadrant two 5 mm trocars were inserted. The gallbladder was distended with wall thickening and edema consistent with acute cholecystitis. Approximately 50 mL of bilious fluid was aspirated allowing for decompression of the gallbladder. The gallbladder was then retracted cephalad. The cystic duct was dissected free from surrounding tissues. One clip was placed on the duct near the gallbladder junction. An opening was made in the duct and a cholangiocatheter placed within and secured with a clip. Using contrast dye and fluoroscopy an intraoperative cholangiogram was performed that appeared unremarkable. The clip and catheter were then withdrawn. Three clips were placed on the cystic duct and it was divided. The cystic artery was then identified, dissected free, doubly clipped and divided. A posterior vessel was also identified entering the gallbladder. This too was clipped and divided. The gallbladder was then mobilized away from the liver with cautery. This was somewhat challenging due to the acute inflammatory change obscuring the normal tissue planes. The gallbladder was then completely from the liver. A Surgicel pack was placed on the gallbladder fossa to assist with hemostasis. The gallbladder was then placed in an endoscopic bag and extracted at the superior abdominal trocar site. The fascia there was closed with 0 PDS sutures. All blood and irrigation fluid was suctioned and hemostasis was good. The remaining ports were removed and the pneumoperitoneum was relieved. The skin incisions were injected with half percent Marcaine with epinephrine, and all were closed using 4-0 Monocryl suture. Steri-Strips and dressings were then applied. The patient tolerated the procedure well and was sent to the recovery room in stable condition. At the end of the case all counts were correct. ALEXIS PITTS MD Oct 04, 2016 18:01
[2016-10-04] MEDS: FENTANYL PF 100 MCG/2 ML VIAL. IV PRN ×4 (18:10→18:53)
[2016-10-04] MEDS ORDERED: OXYCODONE/APAP 5/325 TABLET. PO PRN (22:30)
[2016-10-05] MEDS: PIPERACILLIN/TAZOBACTAM 3.375 GM in IV NORMAL SALINE 50ML 50 ML IV SCH ×4 (05:23→12:38)
[2016-10-05 05:58] LABS: BASO % 0 % (0-3); EOS % 0 % (0-3); HEMATOCRIT 39.2 % (39.0-53.0); HEMOGLOBIN 13.6 g/dL (13.0-17.5); LYMPH # 0.7 x10^3/uL (1.0-4.8); LYMPH % 9 % (24-48); MEAN CORPUSCULAR HEMOGLOBIN 34 pg (25-35); MEAN CORPUSCULAR HGB CONC 35 g/dL (31-37); MEAN CORPUSCULAR VOLUME 99 fL (79-100); MONO % 5 % (0-9); NEUT % 86 % (31-73); PLATELET COUNT 169 x10^3/uL (140-400); RED BLOOD COUNT 3.97 x10^6/uL (4.30-5.70); RED CELL DISTRIBUTION WIDTH 12.6 % (11.5-14.5); WHITE BLOOD COUNT 7.9 x10^3/uL (4.0-11.0)
[2016-10-05 06:22] LABS: CALCIUM 8.7 mg/dL (8.5-10.1); POTASSIUM 4.3 mmol/L (3.5-5.1)
[2016-10-05 07:00] VITALS: BP 105/66
[2016-10-05 10:16] LABS: PLT ESTIMATE ADEQUATE (ADEQUATE)
[2016-10-05 11:00] VITALS: BP 114/63
--- NOTE | 2016-10-05 11:06 | PDOC ---
PROGRESS NOTES Subjective Subjective doing quite well, hoping to go home Objective Objective Vital Signs Date Time Temp Pulse Resp B/P Pulse Ox O2 Delivery O2 Flow Rate FiO2 10/05/16 07:00 97.7 81 18 105/66 92 Room Air 97.7 10/04/16 23:25 2.0 Intake and Output 10/05/16 07:00 Intake Total 2460 ml Output Total 325 ml Balance 2135 ml Intake Oral 660 ml IV Total 1800 ml Output Urine Total 275 ml Estimated Blood Loss 50 ml # Voids 5 Physical Exam Abdomen: Soft, No tenderness General: Alert, Oriented X3 Assessment Assessment Problems Medical Problems: (1) Abdominal pain Status: Acute (2) Biliary colic Status: Acute Plan Plan of Care OK to discharge, pain script and work note on chart; please FU with me in 2 weeks in office, call for appt [phone]; thanks! Comment Review of Relevant I have reviewed the following items charles (where applicable) has been applied. Labs Laboratory Tests Test 10/03/16 20:25 10/04/16 04:50 10/04/16 10:40 10/05/16 05:30 White Blood Count 8.7x10^3/uL (4.0-11.0) 7.9x10^3/uL (4.0-11.0) Red Blood Count 4.81x10^6/uL (4.30-5.70) 3.97x10^6/uL (4.30-5.70) Hemoglobin 16.0g/dL (13.0-17.5) 13.6g/dL (13.0-17.5) Hematocrit 47.3% (39.0-53.0) 39.2% (39.0-53.0) Mean Corpuscular Volume 98fL (79-100) 99fL (79-100) Mean Corpuscular Hemoglobin 33pg (25-35) 34pg (25-35) Mean Corpuscular Hemoglobin Concent 34g/dL (31-37) 35g/dL (31-37) Red Cell Distribution Width 12.7% (11.5-14.5) 12.6% (11.5-14.5) Platelet Count 227x10^3/uL (140-400) 169x10^3/uL (140-400) Neutrophils (%) (Auto) 53% (31-73) 86% (31-73) Lymphocytes (%) (Auto) 37% (24-48) 9% (24-48) Monocytes (%) (Auto) 7% (0-9) 5% (0-9) Eosinophils (%) (Auto) 2% (0-3) 0% (0-3) Basophils (%) (Auto) 1% (0-3) 0% (0-3) Neutrophils # (Auto) 4.6x10^3uL (1.8-7.7) 6.8x10^3uL (1.8-7.7) Lymphocytes # (Auto) 3.3x10^3/uL (1.0-4.8) 0.7x10^3/uL (1.0-4.8) Monocytes # (Auto) 0.6x10^3/uL (0.0-1.1) 0.4x10^3/uL (0.0-1.1) Eosinophils # (Auto) 0.2x10^3/uL (0.0-0.7) 0.0x10^3/uL (0.0-0.7) Basophils # (Auto) 0.1x10^3/uL (0.0-0.2) 0.0x10^3/uL (0.0-0.2) Sodium Level 137mmol/L (136-145) 136mmol/L (136-145) Potassium Level 3.6mmol/L (3.5-5.1) 4.3mmol/L (3.5-5.1) Chloride Level 99mmol/L (98-107) 103mmol/L (98-107) Carbon Dioxide Level 26mmol/L (21-32) 27mmol/L (21-32) Anion Gap 12 (6-14) 6 (6-14) Blood Urea Nitrogen 11mg/dL (8-26) 7mg/dL (8-26) Creatinine 1.0mg/dL (0.7-1.3) 1.0mg/dL (0.7-1.3) Estimated GFR (Cockcroft-Gault) 77.0 77.0 BUN/Creatinine Ratio 11 (6-20) Glucose Level 194mg/dL (70-99) 212mg/dL (70-99) Calcium Level 8.7mg/dL (8.5-10.1) 8.7mg/dL (8.5-10.1) Total Bilirubin 0.7mg/dL (0.2-1.0) Aspartate Amino Transf (AST/SGOT) 133U/L (15-37) Alanine Aminotransferase (ALT/SGPT) 197U/L (16-63) Alkaline Phosphatase 112U/L (46-116) Troponin I Quantitative < 0.017ng/mL (0.000-0.055) < 0.017ng/mL (0.000-0.055) < 0.017ng/mL (0.000-0.055) Total Protein 8.4g/dL (6.4-8.2) Albumin 3.7g/dL (3.4-5.0) Albumin/Globulin Ratio 0.8 (1.0-1.7) Lipase 240U/L (73-393) Segmented Neutrophils % 79% (35-66) Band Neutrophils % 5% (0-9) Lymphocytes % 4% (24-48) Monocytes % 12% (0-10) Platelet Estimate Adequate (ADEQUATE) Laboratory Tests Test 10/05/16 05:30 White Blood Count 7.9x10^3/uL (4.0-11.0) Red Blood Count 3.97x10^6/uL (4.30-5.70) Hemoglobin 13.6g/dL (13.0-17.5) Hematocrit 39.2% (39.0-53.0) Mean Corpuscular Volume 99fL (79-100) Mean Corpuscular Hemoglobin 34pg (25-35) Mean Corpuscular Hemoglobin Concent 35g/dL (31-37) Red Cell Distribution Width 12.6% (11.5-14.5) Platelet Count 169x10^3/uL (140-400) Neutrophils (%) (Auto) 86% (31-73) Lymphocytes (%) (Auto) 9% (24-48) Monocytes (%) (Auto) 5% (0-9) Eosinophils (%) (Auto) 0% (0-3) Basophils (%) (Auto) 0% (0-3) Neutrophils # (Auto) 6.8x10^3uL (1.8-7.7) Lymphocytes # (Auto) 0.7x10^3/uL (1.0-4.8) Monocytes # (Auto) 0.4x10^3/uL (0.0-1.1) Eosinophils # (Auto) 0.0x10^3/uL (0.0-0.7) Basophils # (Auto) 0.0x10^3/uL (0.0-0.2) Segmented Neutrophils % 79% (35-66) Band Neutrophils % 5% (0-9) Lymphocytes % 4% (24-48) Monocytes % 12% (0-10) Platelet Estimate Adequate (ADEQUATE) Sodium Level 136mmol/L (136-145) Potassium Level 4.3mmol/L (3.5-5.1) Chloride Level 103mmol/L (98-107) Carbon Dioxide Level 27mmol/L (21-32) Anion Gap 6 (6-14) Blood Urea Nitrogen 7mg/dL (8-26) Creatinine 1.0mg/dL (0.7-1.3) Estimated GFR (Cockcroft-Gault) 77.0 Glucose Level 212mg/dL (70-99) Calcium Level 8.7mg/dL (8.5-10.1) Medications Current Medications Fentanyl Citrate 50 mcg 50 mcg 1X ONCE IV ; Start 10/03/16 at 20:30; Stop 10/03 at 20:31; Status Cancel Sodium Chloride (Iv Sodium Chloride 0.9% 1000ml Bag) 1,000 ml @ 1,000 mls/hr 1X ONCE IV Last administered on 10/03/16 20:33; Start 10/03/16 at 20:30; Stop 10/03/16 at 21:29; Status DC Ondansetron HCl (Zofran) 4 mg 1X ONCE IV Last administered on 10/03/16 20:34 ; Start 10/03/16 at 20:30; Stop 10/03/16 at 20:31; Status DC Fentanyl Citrate (Fentanyl 2ml Vial) 50 mcg 1X ONCE IV Last administered on 20:34; Start 10/03/16 at 20:30; Stop 10/03/16 at 20:31; Status DC Hydromorphone HCl (Dilaudid) 1 mg PRN Q15MIN PRN IV/SQ PAIN GREATER THAN 3/10 Last administered on 10/03/16 21:33; Start 10/03/16 at 21:30; Stop 10/04/16 at 21:29; Status DC Hydromorphone HCl (Dilaudid) 2 mg STK-MED ONCE .ROUTE ; Start 10/03/16 at 21:30 ; Stop 10/03/16 at 21:31; Status DC Ondansetron HCl (Zofran) 4 mg PRN Q8HRS PRN IV NAUSEA/VOMITING; Start 10/03/16 at 22:45; Stop 10/04/16 at 22:44; Status DC Fentanyl Citrate 50 mcg 50 mcg PRN Q1HR PRN IV PAIN Last administered on 00:01; Start 10/03/16 at 22:45; Stop 10/04/16 at 22:44; Status DC Sodium Chloride (Iv Sodium Chloride 0.9% 1000ml Bag) 1,000 ml @ 150 mls/hr Q6H40M IV Last administered on 10/04/16 05:57; Start 10/03/16 at 22:45; Stop 10/04/16 at 22:44; Status DC Acetaminophen (Tylenol) 325 mg PRN Q6HRS PRN PO MILD PAIN / TEMP; Start at 09:30; Stop 10/04/16 at 09:30; Status DC Hydralazine HCl (Apresoline) 10 mg PRN Q4HRS PRN IVP ELEVATED BP, SEE COMMENTS ; Start 10/04/16 at 09:30 Ondansetron HCl (Zofran) 4 mg PRN Q8HRS PRN IV NAUSEA/VOMITING; Start 10/04/16 at 09:30 Albuterol Sulfate 2.5 mg 2.5 mg PRN Q4HRS PRN NEB SHORTNESS OF BREATH; Start at 09:30 Sodium Chloride (Iv Sodium Chloride 0.9% 1000ml Bag) 1,000 ml @ 75 mls/hr [id number] IV Last administered on 10/04/16 22:50; Start 10/04/16 at 09:30 Acetaminophen 325 mg 325 mg PRN Q6HRS PRN PO MILD PAIN / TEMP; Start 10/04/16 at 09:30 Piperacillin Sod/ Tazobactam Sod/ Sodium Chloride (Zosyn/Iv Sodium Chloride 0.9 % 50ml) 50 ml @ 100 mls/hr Q6HRS IV Last administered on 10/05/16 05:23; Start 10/04/16 at 12:00 Cellulose 1 each STK-MED ONCE .ROUTE Last administered on 10/04/16 17:26; Start 10/04/16 at 13:45; Stop 10/04/16 at 13:46; Status DC Bupivacaine HCl/ Epinephrine Bitart (Sensorcain-Mpf Epi 0.5%-1:[id number]) 30 ml STK -MED ONCE .ROUTE Last administered on 10/04/16 16:32; Start 10/04/16 at 13:45 ; Stop 10/04/16 at 13:46; Status DC Iohexol 50 ml 50 ml STK-MED ONCE .ROUTE Last administered on 10/04/16 16:32; Start 10/04/16 at 13:45; Stop 10/04/16 at 13:46; Status DC Propofol (Diprivan) 20 ml @ As Directed STK-MED ONCE IV ; Start 10/04/16 at 13: 58; Stop 10/04/16 at 13:59; Status DC Lidocaine HCl (Lidocaine HCl 2% Abboject) 100 mg STK-MED ONCE .ROUTE ; Start 05/12 at 13:58; Stop 10/04/16 at 13:59; Status DC Fentanyl Citrate (Fentanyl 2ml Vial) 100 mcg STK-MED ONCE .ROUTE ; Start at 13:59; Stop 10/04/16 at 14:00; Status DC Succinylcholine Chloride (Anectine) 200 mg STK-MED ONCE .ROUTE ; Start 10/04/16 at 13:59; Stop 10/04/16 at 14:00; Status DC Rocuronium [place] (Zemuron) 50 mg STK-MED ONCE .ROUTE ; Start 10/04/16 at 13:59 ; Stop 10/04/16 at 14:00; Status DC Ondansetron HCl (Zofran) 4 mg PRN Q6HRS PRN IV NAUSEA/VOMITING; Start 10/04/16 at 14:45; Stop 10/05/16 at 14:44 Fentanyl Citrate (Fentanyl 2ml Vial) 25 mcg PRN Q5MIN PRN IV MILD PAIN; Start 10/04/16 at 14:45; Stop 10/05/16 at 14:44 Fentanyl Citrate (Fentanyl 2ml Vial) 50 mcg PRN Q5MIN PRN IV MODERATE PAIN Last administered on 10/04/16t 18:53; Start 10/04/16 at 14:45; Stop 10/05/16 at 14:44 Morphine Sulfate 1 mg 1 mg PRN Q10MIN PRN IV SEVERE PAIN; Start 10/04/16 at 14: 45; Stop 10/05/16 at 14:44 Lactated Ringer's (Iv Lactated Ringers) 1,000 ml @ 30 mls/hr Q24H IV ; Start at 14:43; Stop 10/05/16 at 02:42; Status DC Lidocaine HCl 2 ml PRN 1X PRN ID PRIOR TO IV START; Start 10/04/16 at 14:45; Stop 10/05/16 at 14:44 Hydromorphone HCl (Dilaudid) 0.5 mg PRN Q10MIN PRN IV SEV PAIN, Second choice; Start 10/04/16 at 14:45; Stop 10/05/16 at 14:44 Prochlorperazine Edisylate (Compazine) 5 mg PACU PRN PRN IV NAUSEA, MRX1; Start 10/04/16 at 14:45; Stop 10/05/16 at 14:44 Midazolam HCl (Versed) 2 mg STK-MED ONCE .ROUTE ; Start 10/04/16 at 15:54; Stop 10/04/16 at 15:55; Status DC Glycopyrrolate (Robinul) 1 mg STK-MED ONCE .ROUTE ; Start 10/04/16 at 15:59; Stop 10/04/16 at 16:00; Status DC Neostigmine Methylsulfate 5 mg STK-MED ONCE .ROUTE ; Start 10/04/16 at 16:00; Stop 10/04/16 at 16:01; Status DC Dexamethasone Sodium Phosphate (Decadron) 20 mg STK-MED ONCE .ROUTE ; Start 05/12 at 16:00; Stop 10/04/16 at 16:01; Status DC Ketorolac Tromethamine (Toradol For Or Only) 60 mg STK-MED ONCE .ROUTE ; Start 10/04/16 at 16:00; Stop 10/04/16 at 16:01; Status DC Ondansetron HCl (Zofran) 4 mg STK-MED ONCE .ROUTE ; Start 10/04/16 at 16:00; Stop 10/04/16 at 16:01; Status DC Ephedrine Sulfate 50 mg STK-MED ONCE IV ; Start 10/04/16 at 16:19; Stop at 16:20; Status DC Phenylephrine HCl 1 mg STK-MED ONCE IV ; Start 10/04/16 at 16:23; Stop 10/04/16 at 16:24; Status DC Fentanyl Citrate (Fentanyl 2ml Vial) 100 mcg STK-MED ONCE .ROUTE ; Start at 16:38; Stop 10/04/16 at 16:39; Status DC Hydralazine HCl (Apresoline) 20 mg STK-MED ONCE .ROUTE ; Start 10/04/16 at 16:52 ; Stop 10/04/16 at 16:53; Status DC Fentanyl Citrate (Fentanyl 2ml Vial) 100 mcg STK-MED ONCE .ROUTE ; Start at 17:40; Stop 10/04/16 at 17:41; Status DC Oxycodone/ Acetaminophen (Percocet 5/325) 1 tab PRN Q6HRS PRN PO PAIN Last administered on 10/04/16t 22:25; Start 10/04/16 at 22:30 Morphine Sulfate 1 mg PRN Q4HRS PRN IV PAIN; Start 10/04/16 at 22:30 Active Scripts Active Reported [Citalopram] 20 Mg PO DAILY Omeprazole 20 Mg Capsule.dr 1 Cap PO DAILY Vitals/I & O Vital Sign - Last 24 Hours 10/04/16 10/04/16 10/04/16 10/04/16 13:28 14:57 15:31 17:54 Temp 98.7 98.2 98.7 98.2 Pulse 66 75 Resp 18 18 B/P 126/93 148/98 Pulse Ox 96 96 O2 Delivery Room Air Nasal Cannula Room Air Mask O2 Flow Rate 10 10/04/16 10/04/16 10/04/16 10/04/16 17:54 18:09 18:10 18:24 Temp 99.0 99.0 Pulse 118 106 113 Resp 17 18 18 16 B/P 148/86 156/77 136/63 Pulse Ox 95 95 95 93 O2 Delivery Simple Mask Simple Mask Simple Mask Nasal Cannula O2 Flow Rate 10 10 10.0 2 10/04/16 10/04/16 10/04/16 10/04/16 18:26 18:39 18:47 18:53 Temp 99.3 99.3 Pulse 113 Resp 16 B/P 138/71 Pulse Ox 93 93 92 93 O2 Delivery Room Air Nasal Cannula Nasal Cannula Nasal Cannula O2 Flow Rate 2 2.0 2.0 10/04/16 10/04/16 10/04/16 10/04/16 19:00 19:15 20:00 23:01 Temp 98.4 98.0 98.4 98.0 Pulse 111 108 111 Resp 18 18 18 B/P 116/70 111/72 122/70 Pulse Ox 93 92 93 O2 Delivery Room Air Room Air Mask 10/04/16 10/05/16 23:25 07:00 Temp 97.7 97.7 Pulse 81 Resp 18 B/P 105/66 Pulse Ox 93 92 O2 Delivery Room Air O2 Flow Rate 2.0 Intake and Output 10/04/16 10/04/16 10/05/16 15:00 23:00 07:00 Intake Total 1920 ml 540 ml Output Total 325 ml Balance 1595 ml 540 ml ALEXIS PITTS MD Oct 05, 2016 11:06
[2016-10-05] MEDS ORDERED: OXYC1TAB7 PO (11:20)
--- NOTE | 2016-10-06 15:36 | PATHOLOGY ---
PATHOLOGY REPORT * * * * * * * * FINAL DIAGNOSIS: Gallbladder, laparoscopic cholecystectomy: - Cholelithiasis. - Cholesterolosis. - Acute hemorrhagic and chronic cholecystitis. COMMENT: There is no evidence of malignancy. (JPM:; d/t: 10/06/16) REPORT ELECTRONICALLY SIGNED BY: Leonard Shepard M.D. DATE/TIME: 10/06/2016 15:35 * * * * * * * * GROSS PATHOLOGY: Received in formalin labeled "[place] - gallbladder and its contents," is a 9.3 x 4.3 x 2.2 cm, intact gallbladder with pink-de la cruz, diffusely hemorrhagic, and wrinkled serosal surfaces with adhesions. Opening the gallbladder reveals dark green and velvety mucosa with diffuse yellow streaking and an average wall thickness of 0.3 cm. Multiple yellow-green and multinodular calculi ranging from 0.2-0.5 cm in greatest dimension are present and no masses are noted grossly. Brand Activation Manager sections from the body and fundus are submitted along with the proximal margin in cassette A1. (TTL; 10/05/2016) INITIAL CPT CODE(S): A; 93444 Professional services performed [place] [facility] [place] [address] Technical services performed by [facility] at [address] [place] [address], [facility] [address] [address]. SPECIMEN(S) RECEIVED: A.Gallbladder and its contents CLINICAL HISTORY: Abdominal pain PATIENT: PETEY PARK /AGE: 6 1960 (Age: 55) PATIENT #: [id number] ALT CASE #: SPECIMEN COLLECTION DATE: 10/04/2016 SPECIMEN RECEIVED DATE: 10/05/2016 [facility] - [id number] [place] [address] - PHONE: [phone] * * * END OF REPORT * * *
== END 2016-10-05 15:00 | disposition home or self-care (01) | DRG 419 ==
LOC: ER 19:53 → 5 SOUTH 22:40
PROVIDERS: ADMIT Internal Medicine; ATTEND Internal Medicine
PROC: BF121ZZ Fluoroscopy of Gallbladder using Low Osmolar Contrast (ICD-10-PCS; 2016-10-04)
PROC: 0FT44ZZ Resection of Gallbladder, Percutaneous Endoscopic Approach (ICD-10-PCS; principal; 2016-10-04 16:00)
DX: K80.00 Calculus of gallbladder with acute cholecystitis without obstruction (principal); K21.9 Gastro-esophageal reflux disease without esophagitis; Z68.33 Body mass index [BMI] 33.0-33.9, adult; E66.9 Obesity, unspecified; F41.9 Anxiety disorder, unspecified; Z88.5 Allergy status to narcotic agent; R91.1 Solitary pulmonary nodule
CPT/HCPCS: 36415; 74176; 74300; 76705; 80048; 80053; 83690; 84484; 85007; 85027; 88304; 93005; 94250; 96361; 96374; 96375; C1769; C1782; J0330; J0360; J1100; J1170; J1885; J2250; J2370; J2405; J2543; J2704; J2710; J3010; J3490; J7030; J7120; Q9967; 99285-25

== ENCOUNTER → 2016-10-11 | Outpatient (CLI) | payer BC ==
[2016-10-05 11:00] VITALS: BP 114/63
[~2016-10-11] MED LIST: Citalopram PO; IOHEXOL 300 MG/ML 75 ML VIAL IV ONE; OMEP20CA9 PO; OXYC1TAB7 PO; Paxil PO; heartburn med PO
--- NOTE | 2016-10-11 11:41 | RAD ---
Indication abnormal imaging. Nodule. Contrast imaging through the chest was performed. 75 cc of Omnipaque [address] imaging through the chest is available. No recent plain film imaging of the chest is available. Note is made of a CT examination of the abdomen and pelvis, incorporating the lower chest, 10/03/2016 demonstrating a 9 mm pulmonary nodule at the left lung base. Imaging through the upper abdomen is unremarkable. The thoracic aorta appears unremarkable. There is no significant hilar or mediastinal adenopathy. Known nodule, in the left lower lobe, image 55 series 2 is reproduced appearing similar. A calcified small nodule is seen in the left upper lobe. A dominant soft tissue mass or new soft tissue pulmonary nodule is not seen. IMPRESSION: 9 mm nodule in the left lower lobe. No additional soft tissue nodule seen. Follow-up imaging along the lines of the Fleischner criteria should be considered. Nodules detected incidentally at non-screening CT Nodule size (mm) less than or equal to 4 Low Risk patients- no follow-up needed High Risk patients- follow-up at 12 months and if no change, no further imaging needed. Nodule size > 4-6 mm Low risk patients- follow- up at 12 months and if no change, no further imaging needed High risk patients- initial follow-up CT at 6-12 months and then at 18-24 months if no change. Nodule Size > 6-8 mm Low risk patients- initial follow-up CT at 6-12 months and then at 18-24 months if no change. High risk patients- initial follow- up CT at 3-6 months and then at 9-12 months if no change, Nodule Size >8 mm Either low or high risk patients: Follow-up CT at around 3, 9 and 24 [address], PET, and/or biopsy Note: newly detected indeterminate nodule in person 35 years of age or older. Low risk patients- minimal or absent history of smoking and/or other known risk factors. High risk patients- history of smoking or of other known risk factors. PQRS Compliance Statement: One or more of the following individualized dose reduction techniques were utilized for this examination: 1. Automated exposure control 2. Adjustment of the mA and/or kV according to patient size 3. Use of iterative reconstruction technique
== END | disposition home or self-care (01) ==
LOC: CT 09:50
PROVIDERS: ATTEND Family Medicine
DX: R93.8 Abnormal findings on diagnostic imaging of other specified body structures (principal)
CPT/HCPCS: 71260; Q9967

== ENCOUNTER → 2020-07-01 | Outpatient (CLI) | payer OTHER ==
[~2020-07-01] MED LIST changes: -IOHEXOL 300 MG/ML 75 ML VIAL IV ONE; +OMEP20CA16 PO; -OMEP20CA9 PO
[2020-07-01 09:41] LABS: BASO # 0.1 x10^3/uL (0.0-0.2); BASO % 1 % (0-3); EOS # 0.2 x10^3/uL (0.0-0.7); EOS % 3 % (0-3); HEMATOCRIT 46.1 % (39.0-53.0); HEMOGLOBIN 16.3 g/dL (13.0-17.5); LYMPH # 2.8 x10^3/uL (1.0-4.8); LYMPH % 36 % (24-48); MEAN CORPUSCULAR HEMOGLOBIN 35 pg (25-35); MEAN CORPUSCULAR HGB CONC 35 g/dL (31-37); MEAN CORPUSCULAR VOLUME 99 fL (79-100); MONO # 0.5 x10^3/uL (0.0-1.1); MONO % 6 % (0-9); NEUT # 4.1 x10^3/uL (1.8-7.7); NEUT % 54 % (31-73); PLATELET COUNT 197 x10^3/uL (140-400); RED BLOOD COUNT 4.67 x10^6/uL (4.30-5.70); RED CELL DISTRIBUTION WIDTH 12.5 % (11.5-14.5); WHITE BLOOD COUNT 7.6 x10^3/uL (4.0-11.0)
[2020-07-01 10:02] LABS: ALBUMIN 3.9 g/dL (3.4-5.0); ALBUMIN/GLOBULIN RATIO 0.8 (1.0-1.7); CALCIUM 9.9 mg/dL (8.5-10.1); CREATININE 0.9 mg/dL (0.7-1.3); GFR 85.8; POTASSIUM 4.3 mmol/L (3.5-5.1); TOTAL BILIRUBIN 1.4 mg/dL (0.2-1.0); TOTAL PROTEIN 8.8 g/dL (6.4-8.2)
[2020-07-01 10:08] LABS: CHOLESTEROL/HDL RATIO 2.5
[2020-07-01 10:15] LABS: FREE T4 0.99 ng/dL (0.76-1.46); THYROID STIM HORMONE (TSH) 1.794 uIU/mL (0.358-3.74)
== END ==
LOC: LAB 09:02
PROVIDERS: ATTEND Family Medicine
DX: Z12.5 Encounter for screening for malignant neoplasm of prostate (principal); K21.9 Gastro-esophageal reflux disease without esophagitis; R03.0 Elevated blood-pressure reading, without diagnosis of hypertension; I10 Essential (primary) hypertension
CPT/HCPCS: 36415; 80053; 80061; 84439; 84443; 85025; G0103

== ENCOUNTER → 2020-07-13 | Outpatient (CLI) | payer OTHER ==
--- NOTE | 2020-07-13 11:24 | RAD ---
EXAM: Chest CT without intravenous contrast. HISTORY: Pulmonary nodule. TECHNIQUE: Computed tomographic images of the chest were obtained without contrast. Multiplanar refor matting was performed. *One or more of the following individualized dose reduction techniques were utilized for this examina tion: 1. Automated exposure control. 2. Adjustment of the mA and/or kV according to patient size. 3. Use of iterative reconstruction technique. COMPARISON: 10/11/2016. FINDINGS: There has been minimal interval change in an 8 mm irregular nodule at the left lung base. T his previously measured 7 mm, using the same measurement technique. There are few calcified granuloma s. There is bilateral posterior dependent and basilar atelectasis. There is mild biapical pleural par enchymal scarring. There is no pleural effusion or pneumothorax. The heart is normal in size. The aorta is normal in caliber. There are calcified and hilar granulomas . There is no lymphadenopathy. There is no acute finding involving the visualized upper abdomen. Ther e are few pancreatic calcifications likely due to the sequela of chronic pancreatitis. There is no mcnulty spicious osseous lesion. IMPRESSION: 1. 8 mm irregular nodule at the left lung base. Lung RADS category 4. This is minimally increased com pared to a measurement of 7 mm on the prior study. 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 However, continued follow-up is recommended at 6-12 months. 2. No acute thoracic finding. Electronically signed by: Rayne Mary MD (07/13/2020 11:21 AM) [id number]
== END ==
LOC: CT 10:41
PROVIDERS: ATTEND Family Medicine
DX: J98.11 Atelectasis (principal); R91.1 Solitary pulmonary nodule; J98.4 Other disorders of lung
CPT/HCPCS: 71250

== ENCOUNTER → 2021-07-02 | Outpatient (CLI) | payer OTHER ==
[2021-07-02 10:23] LABS: BASO # 0.1 x10^3/uL (0.0-0.2); BASO % 1 % (0-3); EOS # 0.2 x10^3/uL (0.0-0.7); EOS % 3 % (0-3); HEMATOCRIT 45.8 % (39.0-53.0); HEMOGLOBIN 15.7 g/dL (13.0-17.5); LYMPH # 1.8 x10^3/uL (1.0-4.8); LYMPH % 25 % (24-48); MEAN CORPUSCULAR HEMOGLOBIN 34 pg (25-35); MEAN CORPUSCULAR HGB CONC 34 g/dL (31-37); MEAN CORPUSCULAR VOLUME 100 fL (79-100); MONO # 0.4 x10^3/uL (0.0-1.1); MONO % 6 % (0-9); NEUT # 4.5 x10^3/uL (1.8-7.7); NEUT % 65 % (31-73); PLATELET COUNT 217 x10^3/uL (140-400); RED BLOOD COUNT 4.58 x10^6/uL (4.30-5.70); RED CELL DISTRIBUTION WIDTH 12.8 % (11.5-14.5)
--- NOTE | 2021-07-02 10:28 | RAD ---
EXAMINATION: CT Chest Without IV contrast. INDICATION:60 years, Male, follow-up pulmonary nodule. COMPARISON: 07/13/2020 and 10/11/2016. TECHNIQUE: Spiral CT was obtained from the jugular notch through the posterior costophrenic recess. S agittal and coronal reformats were obtained. Exposure: One or more of the following individualized dose reduction techniques were utilized for thi s examination: 1. Automated exposure control 2. Adjustment of the mA and/or kV according to patient size 3. Use of iterative reconstruction technique. FINDINGS: LUNGS/PLEURA: Central airways are patent. Subsegmental atelectatic changes in right lung base, and li ngula. No focal consolidation, pleural effusion or pneumothorax. Stable 8mm solid pulmonary nodule in the left lower lobe. Stable 3 mm fissure based nodule in the left lower lobe (series 8 image 181) si nce 2017. Scattered bilateral calcified granulomas. MEDIASTINUM: No pathologic mediastinal or hilar adenopathy. Mild ascending thoracic aortic aneurysm m easures 4.1 cm in diameter, unchanged. Pulmonary arteries are normal in caliber. The heart is normal in size. No pericardial effusion. Moderate calcified coronary atherosclerosis. The visualized thyroid and the esophagus are unremarkable. AXILLA/SOFT TISSUE: No supraclavicular or axillary adenopathy. Regional soft tissues are within nora l limits. UPPER ABDOMEN: Cholecystectomy. Diffuse pancreatic atrophy with fat infiltration. BONES: No evidence of acute fractures or aggressive osseous lesions. IMPRESSION: 1. Stable 8 mm solid pulmonary nodule in the left lower lobe since July 2016. Findings favor urbano gn nodule. 2. Similar mild ascending thoracic aortic aneurysm measures up to 4.1 cm in diameter. 3. Moderate coronary artery atherosclerotic calcifications. Electronically signed by: Ellen Arcos MD (07/02/2021 10:25 AM) [facility]
[2021-07-02 10:30] LABS: ALBUMIN 3.5 g/dL (3.4-5.0); ALBUMIN/GLOBULIN RATIO 0.7 (1.0-1.7); CALCIUM 9.4 mg/dL (8.5-10.1); GFR 75.7; TOTAL BILIRUBIN 1.4 mg/dL (0.2-1.0); TOTAL PROTEIN 8.6 g/dL (6.4-8.2)
[2021-07-02 10:31] LABS: CHOLESTEROL/HDL RATIO 3.3
[2021-07-03 03:09] LABS: HEMOGLOBIN A1C 6.7 % (4.8-5.6)
== END ==
LOC: CT 09:55
PROVIDERS: ATTEND Family Medicine
DX: Z13.220 Encounter for screening for lipoid disorders (principal); Z12.5 Encounter for screening for malignant neoplasm of prostate; R91.1 Solitary pulmonary nodule; I71.2 Thoracic aortic aneurysm, without rupture; I25.10 Atherosclerotic heart disease of native coronary artery without angina pectoris; K86.89 Other specified diseases of pancreas; J84.10 Pulmonary fibrosis, unspecified; I10 Essential (primary) hypertension; R73.02 Impaired glucose tolerance (oral); Z90.49 Acquired absence of other specified parts of digestive tract
CPT/HCPCS: 36415; 71250; 80053; 80061; 83036; 85025; 86803; 87340; G0103

== ENCOUNTER → 2021-09-10 | Outpatient (CLI) | payer OTHER ==
[~2021-09-10] MED LIST changes: +IOHEXOL 240 MG/ML 50ML VIAL. PO ONE; +IOHEXOL 300 MG/ML 100ML VIAL. IV ONE
[2021-09-10 10:03] LABS: GFR 75.7
--- NOTE | 2021-09-10 17:39 | RAD ---
Exam: CT abdomen/pelvis with intravenous contrast Indication: Abnormal LFTs Comparison: CT abdomen pelvis 10/03/2016 Technique: Helical CT imaging performed of the abdomen and pelvis after the intravenous administratio n of 75 mL Omnipaque 300 contrast. Sagittal and coronal reformats were obtained. One or more of the following individualized dose reduction techniques were utilized for this examinat ion: 1. Automated exposure control 2. Adjustment of the mA and/or kV according to patient size 3. Use of iterative reconstruction technique. Findings: Lower chest: A 6 mm nodule in the posterior left lower lobe has decreased in size from 2017, previous ly 8 mm. This requires no follow-up. The heart is normal in size. Liver: Liver is mildly enlarged measuring 21.6 cm craniocaudally. There is no focal liver lesion. The re is mildly decreased hepatic echogenicity. Gallbladder/Biliary Tree: The gallbladder is surgically absent. Bile ducts are normal. Pancreas: Normal. Spleen: Normal. Adrenal Glands: Normal. Kidneys/Ureters/Bladder: Kidneys are normal in size and enhance symmetrically. No hydronephrosis. Ure ters and bladder are normal. Reproductive Organs: Prostate gland is mildly enlarged. Stomach, small bowel, and colon: The stomach is normal. There is no small bowel obstruction. There ar e occasional colonic diverticula. The appendix is normal. Vasculature: No aortic aneurysm. Mild calcified aortoiliac atherosclerosis. Lymph Nodes: No lymphadenopathy. A frida hepatis lymph node measuring 2.2 x 0.0 cm is unchanged and l ikely reactive. Peritoneum and retroperitoneum: No free fluid or free air. Bones: No acute osseous abnormality. There is moderate degenerative disc disease at L5-S1. Mild degen erative disc disease at L2-L3, mildly progressed from 2017. Miscellaneous: None. IMPRESSION: 1. No acute abnormality. 2. Mild hepatomegaly and hepatic steatosis. Electronically signed by: Lisbet Powers MD (09/10/2021 5:37 PM) [id number]
== END ==
LOC: CT 09:13
PROVIDERS: ATTEND Family Medicine
DX: K57.30 Diverticulosis of large intestine without perforation or abscess without bleeding (principal); N40.0 Benign prostatic hyperplasia without lower urinary tract symptoms; K76.0 Fatty (change of) liver, not elsewhere classified; R79.89 Other specified abnormal findings of blood chemistry; R91.1 Solitary pulmonary nodule; I70.0 Atherosclerosis of aorta; M51.37 Other intervertebral disc degeneration, lumbosacral region
CPT/HCPCS: 36415; 74177; 82565; Q9966; Q9967